=== PATIENT | female | born 2000 | race Caucasian/White ===

== ENCOUNTER 2018-02-24 00:43 | Emergency (ER) | payer OTHER ==
[~2018-02-24] VITALS: Ht 157.5 cm; Wt 49.9 kg
--- NOTE | 2018-02-24 01:09 | ED DYSPNEA/ASTHMA COMPLAINT ---
History of Present Illness General Chief Complaint: Dyspnea (COPD, CHF, Other) Stated Complaint: DIFF BREATHING Source: patient, family, old records Exam Limitations: no limitations Vital Signs & Intake/Output Vital Signs & Intake/Output Vital Signs Date Time Temp Pulse Resp B/P B/P Pulse O2 O2 Flow FiO2 Mean Ox Delivery Rate 02/24 0120 100 Room Air 02/24 0112 96.4 102 18 113/64 100 Room Air Allergies Coded Allergies: birch (Severe, ITCHING, SWELLING TO MOUTH 02/24/18) codeine (Intermediate, ITCHING 02/24/18) Triage Nurses Notes Reviewed? yes Onset: 5 days Duration: day(s):, continues in ED, getting worse Timing: recent history Severity: moderate Activities at Onset: none Prior Episodes/Possible Cause: allergen exposure, illness exposure Associated Symptoms: cough, wheezing LMP (ages 10-50): unknown : No Patient currently breastfeeds: No HPI: 5 days prior to admission patient complains of nasal congestion nonproductive cough sore throat with wheezing. 1 day prior to admission she was prescribed an inhaler. Prior to admission she complaints her inhaler was not working and feels short of breath. She denies fever chills nausea vomiting diarrhea abdominal pain chest pain headache dysuria rash bleeding. Past History Travel History Traveled to [place] past 21 day No Medical History Any Pertinent Medical History? see below for history Respiratory: asthma Surgical History Surgical History: non-contributory Psychosocial History What is your primary language Marshallese Family History Hx Contributory? No Review of Systems Review of Systems Constitutional: Reports: see HPI, malaise. EENTM: Reports: see HPI, nasal congestion, throat pain. Respiratory: Reports: see HPI, cough, short of breath, wheezing. Denies: sputum production. Cardiovascular: Reports: no symptoms. GI: Reports: no symptoms. Genitourinary: Reports: no symptoms. Musculoskeletal: Reports: no symptoms. Skin: Reports: no symptoms. Neurological/Psychological: Reports: no symptoms. Hematologic/Endocrine: Reports: no symptoms. Immunologic/Allergic: Reports: no symptoms. All Other Systems: Reviewed and Negative Physical Exam Physical Exam General Appearance: well developed/nourished, alert, awake, comfortable Head: atraumatic, normal appearance Eyes: Bilateral: normal appearance, PERRL, EOMI. Ears, Nose, Throat: normal pharynx, nasal congestion, pharyngeal erythema Neck: normal inspection, supple, full range of motion, lymphadenopathy (R), lymphadenopathy (L), no midline tenderness Respiratory: chest non-tender, no respiratory distress, quiet respiration, decreased breath sounds Cardiovascular: regular rate/rhythm, normal peripheral pulses, norml femoral pulses equa Peripheral Pulses: 4+ carotid (R), 4+ carotid (L) Gastrointestinal: normal bowel sounds, soft, non-tender, no organomegaly Extremities: normal inspection, normal capillary refill, normal range of motion, no edema Neurologic/Psych: no motor/sensory deficits, awake, alert, oriented x 3, normal gait, normal mood/affect, 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 No CVA/TIA Diagnosis No Sepsis Present: No Sepsis Focused Exam Completed? No Progress Differential Diagnosis: asthma, bronchitis, pneumonia Plan of Care: Current Medications Sig/Dar Start time Last Medication Dose Stop Time Status Admin Albuterol Sulfate 3 ML ONCE ONE 02/24 115 AC (Proventil) 02/25 116 Ipratropium [place] 2.5 ML ONCE ONE 02/24 115 AC (Atrovent) 02/25 116 Oxymetazoline HCl 2 SPRAY ONCE ONE 02/24 115 AC (Afrin) 02/25 116 Prednisone 60 MG ONCE ONE 02/24 115 AC 02/25 116 Initial ED EKG: none Departure Departure Time of Disposition: 137 Disposition: HOME OR SELF CARE Condition: Stable Clinical Impression Primary Impression: Asthma with exacerbation Secondary Impressions: Upper respiratory infection, acute Referrals: Patient Has No Primary Care Dr (PCP/Family) Departure Forms: Customer Survey General Discharge Information Prescriptions: Current Visit Scripts Prednisone 1 TAB PO BID #10 TAB Amoxicillin 1 TAB PO BID #20 TAB Critical Care Note Critical Care Note Critical Care Time: non-applicable
[2018-02-24 01:12] VITALS: BP 113/64
[2018-02-24] MEDS ORDERED: PREDNISONE20 M1 PO (01:40)
[2018-02-24] MEDS ORDERED: AMOXICILLIN875 M1 PO (01:40)
== END 2018-02-24 01:54 ==
LOC: ERH 00:43
DX: J45.901 Unspecified asthma with (acute) exacerbation (principal); J06.9 Acute upper respiratory infection, unspecified
CPT/HCPCS: 1263